=== PATIENT | male | born 2000 | race African-American/Black ===

== ENCOUNTER 2021-04-04 01:58 | Emergency (ER) | payer BC ==
[~2021-04-04] VITALS: Ht 172.7 cm; Wt 73.0 kg
[2021-04-04 02:11] VITALS: BP 112/74
== END 2021-04-04 03:31 | disposition left against medical advice (07) ==
LOC: ER 02:56
DX: R07.89 Other chest pain (principal); F12.10 Cannabis abuse, uncomplicated
CPT/HCPCS: 93005; 99283